=== PATIENT | female | born 1985 ===

== ENCOUNTER 2018-03-10 12:20 | Emergency (ER) | payer SELFPAY ==
[2018-03-10 18:32] VITALS: PULSE 95; TEMP 98; O2SAT 100
--- NOTE | 2018-03-10 19:40 | OBDCSUM ---
Datetime: 03/10/2018 13:43 Discharged to, Provider: Other Follow up at, Provider: [facility] (Clinic) Disch Instr Activity: Normal activity Disch Instr Diet: Regular Discharge Diagnosis, Provider: False Labor - Undelivered Discharge Time: 03/10/2018 13:44 Follow up in weeks, Provider: Next Scheduled Appt 03/14/09 Disch Referrals: None
--- NOTE | 2018-03-10 19:40 | OBHP ---
Datetime: 03/10/2018 13:20 IP Adm Impression: Term, intrauterine IP Admit Plan: Discharge home Admit Comment, IP Provider: HPI: Urvashi is 33 year old at 38.6 presents for complaint of vaginal bleeding. Noticed 2 episodes of scant red spotting over the last 24 hours. Called her normal clinic a nd they told her to come in for evaluation. No contractions or LOF, good movement. PMH Denies PSH Denies Medications PNV Allergies NKDA PHYSICAL EXAM Vitals reviewed See exam section labs unavailable ASSESSMENT/PLAN: 33 year old at 38.6 here for vaginal bleeding. Patient had no active bleedin g at the time of triage and was minimally dilated. While she was nilo on the monitor the patie nt reports that she was not feeling any contractions or abdominal pain. No indication for admission a t this time. Patient has next f/u appt in 4 days. Labor precautions reviewed. Discharged in stable co ndition. Caitlin Ponce MD OB Fellow OB hospitalist note. With OB fellow, i saw this patient. Agree with note. MAHNDO Abdomen - PN: Normal Lungs - PN: Normal Heart - PN: Normal General - PN: Normal FHR - Baseline A Provider: 140 Membranes, Provider: Intact Contraction Comments Provider: Q5 min Gestation - Est Wks by US: 38.6 EGA AdmitDate IP: 38.6 Vital Signs Provider: Reviewed; Within Normal Limits IP Chief Complaint: Vaginal bleeding NICHD Variability Prov Fetus A: Moderate 6-25bpm NICHD Accel Fetus A IP Provider: 15X15 FHR Category Provider Fetus A: Category I Dilatation, Provider: 1 Effacement, Provider: 50 Station, Provider: -3 Genitourinary Exam: Normal
== END 2018-03-10 13:30 | disposition home or self-care (01) ==
LOC: H.EROB2 12:20 → H.L&D 12:27 → H.EROB2 13:30
DX: O26.853 Spotting complicating pregnancy, third trimester (principal); Z3A.38 38 weeks gestation of pregnancy

== ENCOUNTER 2018-03-13 23:10 | Inpatient (IN) | payer MEDICAID ==
[2018-03-13] MEDS ORDERED: Oxytocin 30 UNIT 30 UNITS/500 ML BAG IV ONE (23:47)
[2018-03-14] MEDS ORDERED: Benzocaine/Menthol SPRAY TOP PRN ×3 (00:18→06:59)
[2018-03-14] MEDS ORDERED: OXYTOCIN/0.9 % NS 20 UNIT/1,000 ML BAG IV ONE (00:18)
[2018-03-14] MEDS ORDERED: Oxytocin 30 UNIT 30 UNITS/500 ML BAG IV ONE (00:18)
[2018-03-14 00:19] VITALS: BMI 32.5
--- NOTE | 2018-03-14 00:31 | OBDS ---
MATERNAL INFORMATION Provider Comments: Pt progressed to complete and pushed to deliver a viable female infant through cl ear fluid at 2359. Apgars 9 and 9. Wt 3080 gms, 6#12.6. Cord clamping was delayed and cord was cate sang clamped and cut. was placed on mother's abdomen. Cord bood collected. Placenta delivere d spontaneously intact w/ a 3vc at 12:02. 1% lidocaine injected into vagina and perineum. Second de gree tear repaired w/ 2-0 rapide and 3-0v. Rectum intact. Pt and baby tolerated the procedure well. EBL: 100 mL LABOR SUMMARY EDC: 03/18/2018 00:00
[2018-03-14 00:33] LABS: BASO % 0.3 % (0.0-2.0); EOS % 0.1 % (0.0-4.0); HEMOGLOBIN 9.6 g/dL (12.0-16.0); LYMPH # 1.9 K/uL (1.0-4.3); LYMPH % 17.5 % (20.0-40.0); MEAN CELL VOLUME 83.1 fl (81.0-99.0); MEAN CORPUSCULAR HEMOGLOBIN 26.7 pg (27.0-31.0); MEAN CORPUSCULAR HGB CONC 32.1 g/dL (33.0-37.0); MEAN PLATELET VOLUME 9.7 fl (7.2-11.7); MONO # 0.5 K/uL (0.0-0.8); MONO % 4.5 % (0.0-10.0); NEUT # 8.5 K/uL (1.8-7.0); NEUT % 77.6 % (50.0-75.0); NRBC % 0.1 % (0.0-0.0); RBC 3.59 Mil/uL (3.80-5.20); RED CELL DISTRIBUTION WIDTH 15.2 % (11.5-14.5)
[2018-03-14 01:26] VITALS: O2SAT 99
--- NOTE | 2018-03-14 02:13 | OBADHP ---
Datetime: 03/14/2018 00:43 Admit Comment, IP Provider: 33-year-old at 39.2 weeks presents for suspected ROM 1 hour prio r to presentation and painful, regular contractions since 5:30 pm (6 hours prior to presentation). Sh e describes the rupture of membranes as a gush of clear fluid with no odor. Contractions have been oc curing ever 3-5 minutes. Patient denies vaginal bleeding, decreased movement, malodorous vagina l discharge, recent sexual intercourse, fever, headache, change in vision, new-onset edema, nausea an d vomiting. Patient was seen in [facility] 3 days prior to todays presentation for vaginal spotting. PMD: CFH PMH: denies Allergies: NKDA OBHx: x2, full term Labs: O+ antibody neg, GBS neg, GC/CL neg, rubella immune, RPR neg ROS: all other systems reviewed and negative unless noted in HPI PE: uncomfortable Abd: no tenderness to palpation Extremities: no edema Resp: no respiratory distress Pelvic: 10/100/+1, no external lesions or active bleeding noted Assessment: 33-year-old at 39.2 weeks presents for suspected ROM and painful, regular cont ractions. Plan: -Admit to L_D for vaginal delivery -Labor protocol initiated -CBC, T_S drawn -Declined pain control -Continuous monitoring -Monitor for labor progression -Case seen and discussed with Dr Romero -Sis Sullivan, PGY1 OB Hospitalist Addendum: Pt seen and examined by me. Agree w/ above. 33 yo at 39+2 wks in labor. Pt examined and found to be completely dilated. FHT w/ moderate variability and recurrent variable decelerations. GBS negative. Anticipate VD. (ES) Pelvic Type - PN: Adequate Extremities - PN: Normal Abdomen - PN: Normal Back - PN: Normal Breast - PN: Not Done Lungs - PN: Normal Heart - PN: Normal Thyroid - PN: Not Done Neurologic - PN: Not Done HEENT - PN: Normal General - PN: Normal FHR - Baseline A Provider: 145 Vital Signs Provider: Reviewed; Within Normal Limits IP Chief Complaint: Uterine contractions; Suspected ruptured membranes; Maternal discomfort NICHD Variability Prov Fetus A: Moderate 6-25bpm NICHD Accel Fetus A IP Provider: 15X15 FHR Category Provider Fetus A: Category I NICHD Decel Fetus A IP Provider: None Dilatation, Provider: 10 Effacement, Provider: 100 Station, Provider: 1 Genitourinary Exam: Not Done DTRs - PN: Not Done EGA AdmitDate IP: 39.3 IP Admit Plan: Admit to unit; Initiate labor protocol Datetime: 03/14/2018 00:31 IP Adm Impression: Term, intrauterine ; Active labor Datetime: 03/10/2018 13:20 Membranes, Provider: Intact Contraction Comments Provider: Q5 min Gestation - Est Wks by US: 38.6
--- NOTE | 2018-03-14 09:40 | OBPPN ---
Datetime: 03/14/2018 06:05 PP Pain Prov: Within normal limits PP Nausea Prov: Denies PP Flatus Prov: No PP BM Prov: No PP Breasts Prov: Normal PP Heart Prov: Normal PP Lungs Prov: Normal PP Abdomen/Uterus Prov: Normal PP Lochia Prov: Normal PP Vulva/Perineum Prov: Not Done PP CVA Tenderness Prov: Not Done PP Extremities Prov: Normal PP C/S Incision Prov: Not Applicable PP Progress Prov: Normal PP Impression Prov: Normal progression PP Plan Prov: Continue present management; consult PP Progress Note Prov: S: 33 yo S/P on 03/13/18, PPD1. Pt was seen and examined at bed side this AM. No overnight events. Pain is minimal. Ambulating and tolerating PO diet without difficu lty. Breast and bottle feeding. Lochia less than menses in amount. +Flatus/-BM. Denies fever/chills, diarrhea, nausea/vomiting, chest pain, dyspnea, and dizziness. O: VS: Stable overnight GEN: NAD Cardio: S1S2, no murmurs Lungs: clear breath sounds b/l, no wheezing Abdomen: BS+, appropriate tenderness to palpation. Uterus is firm and at the level of the umbilic us. EXT: No edema, calves non-tender NEURO/PSYCH: AAOx3, no grossly focal deficits, preserved affect and mood. H/H: aCBC: 9.6/29.9 (pCBC pending) Assessment/Plan: 33 yo S/P on 03/13/18, PPD1. Pt remains afebrile, tolerating pain. -Regular diet -Anticipating d/c on 03/15 -Continue with current management -Encourage and ambulating -Ibuprofen 600mg q6 for pain Case seen and discussed with Dr Nick Sullivan PGY1 Patient seen and examined by me this am. Agree with above resident note. --Dr. Echevarria IP PP Procedures: None Vital Signs Provider PP: Reviewed; Within Normal Limits
[2018-03-15 07:02] LABS: HEMOGLOBIN 8.8 g/dL (12.0-16.0); MEAN CELL VOLUME 83.9 fl (81.0-99.0); MEAN CORPUSCULAR HEMOGLOBIN 27.3 pg (27.0-31.0); MEAN CORPUSCULAR HGB CONC 32.5 g/dL (33.0-37.0); RBC 3.21 Mil/uL (3.80-5.20); RED CELL DISTRIBUTION WIDTH 15.5 % (11.5-14.5); WHITE BLOOD COUNT 11.1 K/uL (4.8-10.8)
--- NOTE | 2018-03-15 13:37 | OBPPN ---
Datetime: 03/15/2018 12:27 PP Pain Prov: Within normal limits PP Nausea Prov: Denies PP Flatus Prov: Yes PP BM Prov: No PP Breasts Prov: Not Done PP Heart Prov: Normal PP Lungs Prov: Normal PP Abdomen/Uterus Prov: Normal PP Lochia Prov: Normal PP Vulva/Perineum Prov: Normal PP CVA Tenderness Prov: Normal PP Extremities Prov: Normal PP C/S Incision Prov: Not Applicable PP Progress Prov: Normal PP Impression Prov: Normal progression PP Plan Prov: Discharge PP Progress Note Prov: S: 33 yo S/P on 03/13/18, PPD2. Pt was seen and examined at bed side this AM. No overnight events. Pain is minimal. Ambulating and tolerating PO diet without difficu lty. Breast and bottle feeding. Lochia less than menses in amount. +Flatus/-BM. Denies fever/chills, diarrhea, nausea/vomiting, chest pain, dyspnea, and dizziness. O: VS: Stable overnight GEN: NAD Cardio: S1S2, no murmurs Lungs: clear breath sounds b/l, no wheezing Abdomen: BS+, appropriate tenderness to palpation. Uterus is firm and at the level of the umbilic us. EXT: No edema, calves non-tender NEURO/PSYCH: AAOx3, no grossly focal deficits, preserved affect and mood. H/H: aCBC: 9.6/29.9 ' 8.8/27.0 (pCBC pending) Assessment/Plan: 33 yo S/P on 03/13/18, PPD2. Pt remains afebrile, tolerating pain. -Regular diet -Anticipating d/c on 03/15 -Continue with current management -Encourage and ambulating -Ibuprofen 600mg q6 for pain -Luisa Iparraguirre PGY- 1 Patient seen and examined by me this am. For discharge home today with follow up in 6 weeks. -Dr. Echevarria IP PP Procedures: None Vital Signs Provider PP: Reviewed; Within Normal Limits
--- NOTE | 2018-03-15 13:39 | OBDCSUM ---
Datetime: 03/15/2018 06:05 Discharged to, Provider: Home Follow up at, Provider: Dr Ponce Disch Instr Activity: Normal activity; May Shower Disch Instr Diet: Regular Discharge Instructions, Provider: Routine instructions given Discharge Diagnosis, Provider: Term Delivered Follow up in weeks, Provider: April 18 Disch Referrals: None Disch Activity Restrictions: Minimize stair-climbing; No sexual activity; Nothing in vagina - Interc ourse, tampons, douche Discharge Comment, Provider: Diagnosis: 33 y/o s/p of a baby boy on 03/13/18 at 11:59 pm, at 39.2 EGA at time of delivery. [place]: Female, Wt. 3080 gm, 9/9. Post- D/C Summary: No OB complications. No complications during post- period. Lochia i s less than menses. Pt able to pass flatus, voiding well and able to ambulate but no BM yet. Tolerate regular diet w/o N/V. Fundus firm below umbilicus level. Pt is hemodynamically stable. H/H : pending Discharge Instructions given to patient: Encourage PNV 1 tab PO daily May take Ibuprofen 400mg OTC Q 6h prn for mild-mod pain if needed ED precautions: If excessive bleeding, pain that does not get relief, fever >100.4, palpitations, SOB, CP or other concerning symptom go to the ED PT was urged if feeling sad, mood swing, depression, neglect of baby, suicidal thoughts, homicidal thoughts go to ER or call 911 for help Pt should go to her Primary care doctor if have difficulty with breast feeding F/U April 18, 2018 for PP visit with Dr Ponce. Case discussed with Dr Filiberto Sullivan PGY1 Contraception after Delivery: Undecided
[2018-03-15 19:23] VITALS: BP 120/76; PULSE 76; RESP 20; TEMP 98.2
== END 2018-03-15 13:38 | disposition home or self-care (01) | DRG 560 ==
LOC: H.EROB2 23:10 → H.L&D 23:54 → H.OB/GYN 03-14 02:00
PROVIDERS: ADMIT Obstetrics & Gynecology; ATTEND Obstetrics & Gynecology
PROC: 4A1HXCZ Monitoring of Products of Conception, Cardiac Rate, External Approach (ICD-10-PCS; 2018-03-13)
PROC: 10E0XZZ Delivery of Products of Conception, External Approach (ICD-10-PCS; principal; 2018-03-14)
PROC: 0KQM0ZZ Repair Perineum Muscle, Open Approach (ICD-10-PCS; 2018-03-14)
DX: O70.1 Second degree perineal laceration during delivery (principal); Z37.0 Single live birth; Z3A.39 39 weeks gestation of pregnancy